=== PATIENT | female | born 1950 | race Caucasian/White ===

== ENCOUNTER 2022-12-04 22:12 | Emergency (ER) | payer OTHER ==
[2022-12-04] MEDS ORDERED: NA CHLORIDE 0.9% 1,000 ML ONE (23:13)
[2022-12-04] MEDS ORDERED: FENTANYL CITR 100 MCG/2 ML ONE (23:13)
[2022-12-04] MEDS ORDERED: ONDANSETRON 4 MG/2 ML VIAL ONE (23:13)
[2022-12-04 23:28] LABS: Absolute Lymphocytes (CBC) 1.8 K/uL (0.7-4.9); Hematocrit 39.2 % (36.0-45.0); Lymphocytes % 13.2 % (15.3-44.8); MCV 82.4 fL (80-100); MPV 8.4 fL (7.6-11.3); RBC Red Blood Cell Count 4.76 M/uL (3.86-4.86)
[2022-12-04 23:45] LABS: Albumin 3.5 g/dL (3.4-5.0); Bilirubin Total 0.5 mg/dL (0.2-1.0); Potassium 3.5 mEq/L (3.5-5.1); Protein, Total 7.5 g/dL (6.4-8.2)
--- NOTE | 2022-12-05 00:15 | ER ---
Nurse's Notes [facility] Name: Brynn Moss Age: 71 yrs Sex: Female : 1950 Arrival Date: 12/04/2022 Time: 22:12 Bed 19 Private MD: Diagnosis: Displaced fracture of base of neck of right femur;Sprain of ankle;Unspecified kidney failure Presentation: 12/04 22:27 Chief complaint: Patient states: "I [place] the beach in the dark and mb9 tripped, landing on my right hip and twisted my right ankle. My hip hurts really bad and only feels better if I'm not moving. I'm shaking from the pain" Pt denies taking blood thinners and LOC. Coronavirus screen: Vaccine status: Patient reports being unvaccinated. Ebola Screen: No symptoms or risks identified at this time. Initial Sepsis Screen: Does the patient meet any 2 criteria? No. Patient's initial sepsis screen is negative. Does the patient have a suspected source of infection? No. Patient's initial sepsis screen is negative. Risk Assessment: Do you want to hurt yourself or someone else? Patient reports no desire to harm self or others. Onset of symptoms was December 04, 2022. 22:27 Method Of Arrival: Wheelchair mb9 22:27 Acuity: LAUREN 2 mb9 Triage Assessment: 22:32 General: Appears in no apparent distress. Behavior is calm, cooperative. Pain: mb9 Complains of pain in right foot and right hip Pain currently is 10 out of 10 on a pain scale. Quality of pain is described as throbbing, Pain began suddenly. Neuro: Gray Agitation-Sedation Scale (RASS): 0 - Alert and Calm Level of Consciousness is awake, alert, obeys commands, Oriented to person, place, time, situation, Appropriate for age. Cardiovascular: Patient's skin is warm and dry. Respiratory: Airway is patent Respiratory effort is even, unlabored, Respiratory pattern is regular, symmetrical. GI: Reports nausea. : No signs and/or symptoms were reported regarding the genitourinary system. Derm: Skin is pink, warm \\T\\ dry. Musculoskeletal: Range of motion: limited in right hip and right ankle. Musculoskeletal: Swelling present in right foot. Historical: - Allergies: 22:31 No Known Allergies; mb9 - Home Meds: 22:31 Lisinopril Oral [Active]; Nifedipine Oral [Active]; mb9 - PMHx: 22:31 Hypertensive disorder; mb9 - PSHx: 22:32 Cholecystectomy; mb9 - Immunization history:: Adult Immunizations up to date. - Social history:: Smoking status: Patient denies any tobacco usage or history of. Screenin:02 [facility] ED Fall Risk Assessment (Adult) History of falling in the last 3 months, mb9 including since admission Yes- physiologic fall (2 pts) Confusion or Disorientation No (0 pts) Intoxicated or Sedated No (0 pts) Impaired Gait Yes (1 pt) Mobility Assist Device Used No (0 pt) Altered Elimination No (0 pt) Score/Fall Risk Level 0 - 2 = Low Risk Oriented to surroundings, Maintained a safe environment, Educated pt \\T\\ family on fall prevention, incl call for assistance when getting out of bed. Abuse screen: Denies threats or abuse. Nutritional screening: No deficits noted. Tuberculosis screening: No symptoms or risk factors identified. Assessment: 22:33 General: Appears uncomfortable, Behavior is cooperative, agitated, anxious. Pain: ha1 Complains of pain in right leg and right hip Pain does not radiate. Pain currently is 10 out of 10 on a pain scale. Quality of pain is described as sharp, throbbing. Neuro: Level of Consciousness is awake, alert, obeys commands, Oriented to person, place, time, situation. Cardiovascular: Patient's skin is warm and dry. Rhythm is sinus rhythm. Respiratory: Airway is patent Respiratory effort is even, unlabored, Respiratory pattern is regular, symmetrical. 23:30 Reassessment: Patient and/or family updated on plan of care and expected duration. Pain ha1 level reassessed. Patient is alert, oriented x 3, equal unlabored respirations, skin warm/dry/pink. 08 00:30 Reassessment: Patient and/or family updated on plan of care and expected duration. Pain ha1 level reassessed. Patient is alert, oriented x 3, equal unlabored respirations, skin warm/dry/pink. 01:30 Reassessment: Patient and/or family updated on plan of care and expected duration. Pain ha1 level reassessed. Patient is alert, oriented x 3, equal unlabored respirations, skin warm/dry/pink. 02:20 Reassessment: Patient and/or family updated on plan of care and expected duration. Pain ha1 level reassessed. Patient is alert, oriented x 3, equal unlabored respirations, skin warm/dry/pink. Vital Signs: 12/04 22:27 BP 184 / 86; Pulse 83; Resp 18; Temp 98.2; Pulse Ox 100% on R/A; Weight 80.74 kg; mb9 Height 5 ft. 6 in. ; Pain 10/10; 23:30 BP 185 / 79; Pulse 92; Resp 18 S; Pulse Ox 98% on R/A; ha1 12/05 00:00 BP 178 / 87; Pulse 90; Resp 18 S; Pulse Ox 98% on R/A; ha1 00:30 BP 179 / 80; Pulse 88; Resp 16 S; Pulse Ox 94% on R/A; ha1 01:30 BP 156 / 80; Pulse 85; Resp 18 S; Pulse Ox 97% on R/A; ha1 02:20 BP 150 / 80; Pulse 82; Resp 18 S; Pulse Ox 96% on R/A; ha1 12/04 22:27 Body Mass Index 28.73 (80.74 kg, 167.64 cm) mb9 12/04 22:27 Pain Scale: Adult mb9 ED Course: 12/04 22:16 Patient arrived in ED. am2 22:31 Triage completed. mb9 22:32 Arm band placed on. mb9 22:33 Patient has correct armband on for positive identification. Placed in gown. Bed in low ha1 position. Call light in reach. Side rails up X 1. Adult w/ patient. 22:40 Srinivasan Mcnally MD is Attending Physician. [facility] 22:58 Arti Lantigua, JAMES is Primary Nurse. ha1 23:15 Inserted saline lock: 22 gauge in left antecubital area, using aseptic technique. Blood ha1 collected. 23:23 Comprehensive Metabolic Panel Sent. ha1 23:23 CBC with Diff Sent. ha1 23:56 XRAY Ankle RIGHT 3 view In Process Unspecified. EDMS 23:56 Pelvis XRAY In Process Unspecified. EDMS 08 00:25 Hip Right Wo Con In Process Unspecified. EDMS 00:53 Chest Single View XRAY In Process Unspecified. EDMS 00:53 Initiated transfer to [facility], spoke with Gurpreet. wm 01:01 Pt accepted for transfer by Dr. Dean Looney per Gurpreet Fairbanks. wm 02:22 Primary Nurse role handed off by Arti Lantigua RN ha1 02:24 No provider procedures requiring assistance completed. Patient transferred, IV remains ha1 in place. 02:30 Provided Education on: need for transfer . ha1 Administered Medications: 12/04 23:10 Drug: NS 0.9% IV 1000 ml Route: IV; Rate: 1 bolus; Site: left antecubital; ha1 12/05 01:00 Follow up: Response: No adverse reaction; IV Status: Completed infusion; IV Intake: ha1 1000ml 12/04 23:10 Drug: Ondansetron IVP 4 mg Route: IVP; Site: left antecubital; ha1 23:45 Follow up: Response: No adverse reaction ha1 23:13 Drug: fentaNYL (PF) IVP 50 mcg Route: IVP; Site: left antecubital; ha1 23:45 Follow up: Response: No adverse reaction; Pain is decreased; RASS: Alert and Calm (0) ha1 12/05 02:12 Drug: Ondansetron IVP 4 mg Route: IVP; Site: left antecubital; ha1 02:25 Follow up: Response: No adverse reaction ha1 02:18 Drug: HYDROmorphone IVP 1 mg Route: IVP; Site: left antecubital; ha1 02:25 Follow up: Response: No adverse reaction; Pain is decreased; RASS: Alert and Calm (0) ha1 02:28 Not Given (Duplicate Order): Ondansetron IVP 4 mg IVP once; over 2 minutes ha1 Medication: 12/04 23:02 VIS not applicable for this client. mb9 Intake: 12/05 01:00 IV: 1000ml; Total: 1000ml. ha1 Outcome: 00:14 ER care complete, transfer ordered by . ashley 02:15 Patient left the ED. ha1 02:20 Transferred to [facility]. ha1 02:20 Condition: stable 02:20 Discharge instructions given to patient, Instructed on the need for transfer, ha1 Demonstrated understanding of instructions. 02:33 Patient left the ED. ha1 Signatures: Dispatcher [employer] EDMS Uli, Srinivasan, Yola Nina MD, cha, Wendy wm Ayala, Heidy, RN RN ha1 Tamy Trejo RN RN mb9 Corrections: (The following items were deleted from the chart) 12/04 23:02 22:27 Acuity: LAUREN 3 mb9 mb9
--- NOTE | 2022-12-05 00:15 | EDPHYS ---
Physician Documentation [facility] Name: Brynn Moss Age: 71 yrs Sex: Female : 1950 Arrival Date: 12/04/2022 Time: 22:12 Bed 19 Private MD: ED Physician Srinivasan Mcnally HPI: 12/05 00:07 This 71 yrs old Female presents to ER via Wheelchair with complaints of Fall ashley Injury, Hip Pain. 00:07 This 71 yrs old WHITE Female presents to ER via Wheelchair with complaints of Fall ashley Injury, Hip Pain. 00:07 Details of fall: The patient fell from an upright position, while walking. Onset: The ashley symptoms/episode began/occurred just prior to arrival. Associated injuries: The patient sustained right hip and right ankle, decreased range of motion. Severity of symptoms: At their worst the symptoms were moderate, in the emergency department the symptoms are unchanged. The patient has not experienced similar symptoms in the past. Historical: - Allergies: 12/04 22:31 No Known Allergies; mb9 - Home Meds: 22:31 Lisinopril Oral [Active]; Nifedipine Oral [Active]; mb9 - PMHx: 22:31 Hypertensive disorder; mb9 - PSHx: 22:32 Cholecystectomy; mb9 - Immunization history:: Adult Immunizations up to date. - Social history:: Smoking status: Patient denies any tobacco usage or history of. ROS: 12/05 00:08 Constitutional: Negative for fever, chills, and weight loss, Eyes: Negative for injury, ashley pain, redness, and discharge, ENT: Negative for injury, pain, and discharge, Neck: Negative for injury, pain, and swelling, Cardiovascular: Negative for chest pain, palpitations, and edema, Respiratory: Negative for shortness of breath, cough, wheezing, and pleuritic chest pain, Abdomen/GI: Negative for abdominal pain, nausea, vomiting, diarrhea, and constipation, Back: Negative for injury and pain, : Negative for injury, bleeding, discharge, and swelling, Skin: Negative for injury, rash, and discoloration, Neuro: Negative for headache, weakness, numbness, tingling, and seizure, Psych: Negative for depression, anxiety, suicide ideation, homicidal ideation, and hallucinations, Allergy/Immunology: Negative for hives, rash, and allergies, Endocrine: Negative for neck swelling, polydipsia, polyuria, polyphagia, and marked weight changes, Hematologic/Lymphatic: Negative for swollen nodes, abnormal bleeding, and unusual bruising. MS/extremity: Positive for decreased range of motion, pain, swelling, tenderness, of the right leg and right ankle and right hip. Exam: 00:08 Constitutional: This is a well developed, well nourished patient who is awake, alert, ashley and in no acute distress. Head/Face: Normocephalic, atraumatic. Eyes: Pupils equal round and reactive to light, extra-ocular motions intact. Lids and lashes normal. Conjunctiva and sclera are non-icteric and not injected. Cornea within normal limits. Periorbital areas with no swelling, redness, or edema. ENT: Nares patent. No nasal discharge, no septal abnormalities noted. Tympanic membranes are normal and external auditory canals are clear. Oropharynx with no redness, swelling, or masses, exudates, or evidence of obstruction, uvula midline. Mucous membranes moist. Neck: Trachea midline, no thyromegaly or masses palpated, and no cervical lymphadenopathy. Supple, full range of motion without nuchal rigidity, or vertebral point tenderness. No Meningismus. Chest/axilla: Normal chest wall appearance and motion. Nontender with no deformity. No lesions are appreciated. Cardiovascular: Regular rate and rhythm with a normal S1 and S2. No gallops, murmurs, or rubs. Normal PMI, no JVD. No pulse deficits. Respiratory: Lungs have equal breath sounds bilaterally, clear to auscultation and percussion. No rales, rhonchi or wheezes noted. No increased work of breathing, no retractions or nasal flaring. Abdomen/GI: Soft, non-tender, with normal bowel sounds. No distension or tympany. No guarding or rebound. No evidence of tenderness throughout. Back: No spinal tenderness. No costovertebral tenderness. Full range of motion. Skin: Warm, dry with normal turgor. Normal color with no rashes, no lesions, and no evidence of cellulitis. Neuro: Awake and alert, GCS 15, oriented to person, place, time, and situation. Cranial nerves II-XII grossly intact. Motor strength 5/5 in all extremities. Sensory grossly intact. Cerebellar exam normal. Normal gait. Psych: Awake, alert, with orientation to person, place and time. Behavior, mood, and affect are within normal limits. 00:08 Musculoskeletal/extremity: Extremities: grossly normal except: noted in the right ankle and right hip: decreased ROM, pain, ROM: limited active range of motion due to pain, limited passive range of motion due to pain, Circulation is intact in all extremities. Sensation intact. Compartment Syndrome exam of affected extremity: is normal. Joints: All joints are normal except the right hip and right ankle displays pain at rest, painful range of motion, swelling, Weight bearing: is unable to bear weight, DVT Exam: negative Homans' sign noted on exam, no appreciated bluish discoloration, no erythema, no increased warmth, pain, swelling, tenderness. 01:03 ECG was reviewed by the Attending Physician. [facility] Vital Signs: 12/04 22:27 BP 184 / 86; Pulse 83; Resp 18; Temp 98.2; Pulse Ox 100% on R/A; Weight 80.74 kg; mb9 Height 5 ft. 6 in. ; Pain 10/10; 23:30 BP 185 / 79; Pulse 92; Resp 18 S; Pulse Ox 98% on R/A; ha1 12/05 00:00 BP 178 / 87; Pulse 90; Resp 18 S; Pulse Ox 98% on R/A; ha1 00:30 BP 179 / 80; Pulse 88; Resp 16 S; Pulse Ox 94% on R/A; ha1 01:30 BP 156 / 80; Pulse 85; Resp 18 S; Pulse Ox 97% on R/A; ha1 02:20 BP 150 / 80; Pulse 82; Resp 18 S; Pulse Ox 96% on R/A; ha1 12/04 22:27 Body Mass Index 28.73 (80.74 kg, 167.64 cm) 9 12/04 22:27 Pain Scale: Adult 9 MDM: 12/04 22:40 Patient medically screened. [facility] 12/05 00:10 Differential diagnosis: hip fracture, intertrochanteric fracture, femoral neck ashley fracture, femoral shaft fracture, strain, fracture, sprain. Differential diagnosis: contusion, fracture, multiple trauma, strain. Data reviewed: vital signs, nurses notes, lab test result(s), radiologic studies, CT scan, plain films. Consideration of Admission/Observation Escalation of care including admission/observation considered. I considered the following discharge prescriptions or medication management in the emergency department Medications were administered in the Emergency Department. See MAR. Test considered but Not performed: MRI: NO MRI. Historians other than the Patient: Daughter/Son: BOTH SONS , WELL INFORMED. Care significantly affected by the following chronic conditions: Hypertension. 12/04 22:42 Order name: CBC with Diff; Complete Time: 00:[address] [facility] 12/04 22:42 Order name: Comprehensive Metabolic Panel; Complete Time: 00:[address] [facility] 12/05 00:15 Order name: PT-INR [facility] 12/04 22:35 Order name: XRAY Ankle RIGHT 3 view pf1 12/04 22:42 Order name: Pelvis XRAY [facility] 12/04 22:47 Order name: Hip Right Wo Con EDMS 12/05 00:15 Order name: Chest Single View XRAY [facility] 12/05 00:15 Order name: EKG; Complete Time: 00:[address] [facility] 12/04 22:42 Order name: Ice pack; Complete Time: 23:[address] [facility] 12/05 00:15 Order name: EKG - Nurse/Tech; Complete Time: 00:[address] [facility] EC:03 Rate is 90 beats/min. Rhythm is regular. QRS [place] is Normal. NM interval is normal. QRS ashley interval is normal. QT interval is normal. No Q waves. T waves are Normal. No ST changes noted. Clinical impression: NSR w/ Non-specific ST/T Changes and No evidence of ischemia. Interpreted by me. Reviewed by me. Administered Medications: 12/04 23:10 Drug: NS 0.9% IV 1000 ml Route: IV; Rate: 1 bolus; Site: left antecubital; [facility] 12/05 01:00 Follow up: Response: No adverse reaction; IV Status: Completed infusion; IV Intake: ha1 1000ml 12/04 23:10 Drug: Ondansetron IVP 4 mg Route: IVP; Site: left antecubital; 1 23:45 Follow up: Response: No adverse reaction [facility] 23:13 Drug: fentaNYL (PF) IVP 50 mcg Route: IVP; Site: left antecubital; ha 23:45 Follow up: Response: No adverse reaction; Pain is decreased; RASS: Alert and Calm (0) [facility] 12/05 02:12 Drug: Ondansetron IVP 4 mg Route: IVP; Site: left antecubital; ha1 02:25 Follow up: Response: No adverse reaction ha1 02:18 Drug: HYDROmorphone IVP 1 mg Route: IVP; Site: left antecubital; ha1 02:25 Follow up: Response: No adverse reaction; Pain is decreased; RASS: Alert and Calm (0) ha1 02:28 Not Given (Duplicate Order): Ondansetron IVP 4 mg IVP once; over 2 minutes ha1 Disposition Summary: 12/05/22 00:14 Transfer Ordered Transfer Location: [facility] ashley Reason: Higher level of care ashley Condition: Stable ashley Problem: new ashley Symptoms: have improved ashley Accepting Physician: TO [facility] PER FAMILY(12/05/22 02:33) ha1 Diagnosis - Displaced fracture of base of neck of right femur ashley - Sprain of ankle ashley - Unspecified kidney failure ashley Forms: - Medication Reconciliation Form ashley - SBAR form ashley Signatures: Dispatcher [employer] EDSrinivasan Blas MD MD cha Ayala, Heidy RN RN ha1 Tamy Trejo RN RN mb9 Corrections: (The following items were deleted from the chart) 00:15 00:14 [facility] PER FAMILY ashley ashley 02:15 00:15 [facility] PER FAMILY ashley ha1 02:33 02:15 [facility] PER FAMILY ha1 ha1
[2022-12-05 00:54] LABS: Protime INR 0.95
[2022-12-05] MEDS ORDERED: HYDROMORPHONE HCL 1 MG/ML INJ ONE (02:11)
[2022-12-05] MEDS ORDERED: ONDANSETRON 4 MG/2 ML VIAL ONE (02:11)
[2022-12-05 03:17] VITALS: TEMP 98.2
[2022-12-05 03:49] VITALS: BP 150/80; O2SAT 96
--- NOTE | 2022-12-05 22:52 | RAD REPORT ---
EXAM DESCRIPTION: Chest Single View CLINICAL HISTORY: COUGH COMPARISON: None. FINDINGS: Single frontal radiograph view of the chest. Cardiomediastinal silhouette: Normal size and contour. Lungs: No consolidation, pneumothorax, or pleural effusion. Bones: Degenerative change of the spine and shoulders. Upper abdomen: No abnormality identified. IMPRESSION: 1. No acute pulmonary process identified. Electronically signed by: John Killian 12/05/2022 1:02 AM CDT Due to temporary technical issues with the PACS/Fluency reporting system, reports are being signed by the in house radiologists without review as a courtesy to insure prompt reporting. The interpreting radiologist is fully responsible for the content of the report.
--- NOTE | 2022-12-05 23:01 | RAD REPORT ---
EXAM DESCRIPTION: CT of the right hip without contrast CLINICAL HISTORY: Fall COMPARISON: None Available. TECHNIQUE: CT of the right hip without IV contrast. Evaluation of the solid organs and vasculature i s suboptimal due to lack of IV contrast. This exam was performed according to our departmental dose-o ptimization program, which includes automated exposure control, adjustment of the mA and/or kV accord ing to patient size and/or use of iterative reconstruction technique. FINDINGS: Bones: Acute subcapital fracture of the right femoral neck with approximately 1 cm superio r displacement of the femoral neck relative to the femoral head. The femoral head is rotated inferior ly and posteriorly relative to the femoral neck. Osteopenia. Mild left hip joint space narrowing. The visualized pelvic bones are intact otherwise. Pelvis: Bladder: The visualized urinary bladder is unremarkable. Bowel: No dilated loops of the visualized large or small bowel. Appendix: Normal appendix. Pelvis: Uterus is not enlarged. Vasculature: Aortoiliac atherosclerosis. Other: No free intraperitoneal air. No free fluid or lymphadenopathy. IMPRESSION: Acute subcapital fracture of the right femoral neck with approximately 1 cm superior dis placement of the femoral neck relative to the femoral head. The femoral head is rotated inferiorly an d posteriorly relative to the femoral neck. Electronically signed by: John Killian 12/05/2022 12:43 AM CDT Due to temporary technical issues with the PACS/Fluency reporting system, reports are being signed by the in house radiologists without review as a courtesy to insure prompt reporting. The interpreting radiologist is fully responsible for the content of the report.
--- NOTE | 2022-12-05 23:03 | RAD REPORT ---
EXAM DESCRIPTION: Pelvis CLINICAL HISTORY: 71 years Female PAIN TECHNIQUE: One view of the pelvis. COMPARISON: No prior exams provided for comparison. FINDINGS: There is an acute, angulated, and impacted transcervical fracture of the right femoral nec k. No dislocation. No other acute fracture in the pelvis. No aggressive osseous lesion. IMPRESSION: Acute, angulated, and impacted transcervical fracture of the right femoral neck without dislocation. Electronically signed by: Shaunna Rogers MD 12/05/2022 12:09 AM CDT Due to temporary technical issues with the PACS/Fluency reporting system, reports are being signed by the in house radiologists without review as a courtesy to insure prompt reporting. The interpreting radiologist is fully responsible for the content of the report.
--- NOTE | 2022-12-05 23:04 | RAD REPORT ---
EXAM DESCRIPTION: XR ANKLE 3 CLINICAL HISTORY: SWELLING COMPARISON: None. TECHNIQUE: XR ANKLE 3 OR MORE VIEWS 12/04/2022 10:35 PM CDT FINDINGS: There is no fracture. Joint spaces are preserved. There is diffuse but mostly lateral so ft tissue swelling. Positioning is suboptimal. IMPRESSION: No acute osseous findings. Electronically signed by: Kiko Carlson MD 12/05/2022 12:10 AM CDT Due to temporary technical issues with the PACS/Fluency reporting system, reports are being signed by the in house radiologists without review as a courtesy to insure prompt reporting. The interpreting radiologist is fully responsible for the content of the report.
--- NOTE | 2022-12-07 13:07 | EKG ---
Test Date: 2022-12-05 Test Time: 00:59:13 [place] Man: KELLY MEASUREMENT RESULTS: Intervals: Rate: 90 [place]: 164 QRSD: 112 QT: 372 QTc: 455 [place]: P: 69 [place]: 164 QRS: -62 T: 75 INTERPRETIVE STATEMENTS: Normal sinus rhythm Left anterior fascicular block Abnormal ECG No previous ECG available for comparison Electronically Signed On 12-07-22 13:05:10 CDT by Albert Carvajal
== END 2022-12-05 02:33 | disposition short-term general hospital (02) ==
LOC: ER 22:12
DX: S72.041A Displaced fracture of base of neck of right femur, initial encounter for closed fracture (principal); S93.401A Sprain of unspecified ligament of right ankle, initial encounter; N19 Unspecified kidney failure; I10 Essential (primary) hypertension
CPT/HCPCS: 96361; 93005; 85025; 36415; 85610; 80053; 73700; 71045; 72170; 73610; 96375; 96374; 99285; J3010; J1170; J2405 ×2; J7030